=== PATIENT | female | born 1995 | race Caucasian/White ===

== ENCOUNTER 2018-12-09 00:08 | Emergency (ER) | payer OTHER, SELFPAY ==
[2018-12-09 00:16] VITALS: BP 116/78; PULSE 136; RESP 18; TEMP 36.7; O2SAT 99; BMI 23.8
== END 2018-12-09 01:07 | disposition left against medical advice (07) ==
PROVIDERS: Emergency Provider Emergency Medicine
DX: M25.511 Pain in right shoulder (principal); M25.561 Pain in right knee; M25.521 Pain in right elbow; V89.2XXA Person injured in unspecified motor-vehicle accident, traffic, initial encounter; Z53.21 Procedure and treatment not carried out due to patient leaving prior to being seen by health care provider
CPT/HCPCS: 81025; 99282

== ENCOUNTER 2019-06-24 00:44 | Emergency (ER) | payer OTHER, SELFPAY ==
[2019-06-24 00:51] VITALS: BP 137/76; PULSE 56; RESP 16; TEMP 36.1; O2SAT 96; BMI 23.8
--- NOTE | 2019-06-24 00:54 | ED_ITS ---
HPI - Abdominal Pain General Chief Complaint: Back Pain/Injury Stated Complaint: flank pain right side vomiting Time Seen by Provider: 06/24/19 00:46 Source: patient Mode of arrival: Ambulatory Limitations: no limitations History of Present Illness HPI narrative: 24-year-old female nonsmoker with history of kidney stones presents with a chief complaint of a severe and sudden onset right lower quadrant pain which woke her from sleep about an hour prior to her arrival. She went to bed feeling fine. She denies any dysuria, frequency or urgency but states she is unable to urinate. She does have a history of kidney stones, as stated, but states this feels much different. She is nauseated but denies any vomiting, fever or chills. She cannot find a position of comfort, but states that moving makes her pain worse. Last period was 3 weeks ago and light, 4 weeks prior she had a totally normal cycle. She is trying to get . MD complaint: abdominal pain and flank pain Onset (ago): hour(s) Pain Consistency: constant Location: RLQ Severity: moderate Quality: stabbing and aching Radiation: R flank Exacerbating factors: movement Associated symptoms: nausea Related Data Patient : No Previous Rx's Medication Instructions Recorded sulfamethoxazole-trimethoprim 1 tab PO BID #14 tab 12/14/16 tamsulosin [Flomax] 0.4 mg PO QDAY #8 cap 12/14/16 cephalexin [Keflex] 500 mg PO QID 7 Days #28 cap 06/24/19 hydrocodone-acetaminophen 1 tab PO Q4-6H PRN #10 tab 06/24/19 ketorolac 10 mg PO Q6H PRN #14 tab 06/24/19 ondansetron 4 mg PO TID-QID PRN #10 tab 06/24/19 tamsulosin [Flomax] 0.4 mg PO DAILY #10 cap 06/24/19 Allergies Allergy/AdvReac Type Severity Reaction Status Date / Time hydromorphone [From DILAUDID] Allergy Unknown ITCHING Verified 12/09/18 00:16 ibuprofen [IBUPROFEN] AdvReac Unknown Verified 12/09/18 00:16 naproxen [From ALEVE] AdvReac Unknown Verified 12/09/18 00:16 Review of Systems Constitutional Constitutional: Denies chills, Denies fatigue, Denies fever(s), Denies frequent falls, Denies lethargy and Denies weakness Eyes Eyes: Denies change in vision, Denies eye discharge, Denies irritation and Denies loss of vision ENT Ears, Nose, Mouth, and Throat: Denies change in voice, Denies dizziness, Denies neck pain, Denies sore throat and Denies throat swelling Cardiovascular Cardiovascular: Denies chest pain, Denies irregular heart rhythm, Denies lightheadedness, Denies palpitations, Denies dyspnea, Denies dyspnea on exertion and Denies orthopnea Respiratory Respiratory: Denies cough, Denies dyspnea, Denies dyspnea on exertion and Denies wheezing Gastrointestinal Gastrointestinal: Reports abdominal pain, Denies change in bowel habits, Denies diarrhea, Reports nausea and Denies vomiting Genitourinary Genitourinary: Denies hematuria, Reports flank pain, Denies urinary incontinence and Denies urinary urgency Musculoskeletal Musculoskeletal: Denies back pain, Denies muscle weakness, Denies neck pain, Denies numbness and Denies tingling Integumentary/Breasts Skin/Breast: Denies pruritus, Denies erythema, Denies rash and Denies wounds Neurologic Neurologic: Denies behavioral changes, Denies confusion, Denies dizziness, Denies frequent falls, Denies loss of vision, Denies numbness, Denies tingling and Denies weakness Psychiatric Psychiatric: Denies anxiety, Denies behavioral changes, Denies confusion, Denies depression, Denies homicidal ideation and Denies suicidal ideation Endocrine Endocrine: Denies fatigue, Denies flushing and Denies palpitations Hematologic/Lymphatic Hematologic/Lymphatic: Denies easy bruising Allergic/Immunologic Allergic/Immunologic: Denies urticaria, Denies throat swelling and Denies wheezing Patient History Social History Smoking Status: Current every day smoker alcohol intake frequency: holidays/special occasions only Substance Use Type: does not use Exam Narrative Exam Narrative: GENERAL: [24] year old patient appears stated age. Well- nourished, well-developed patient, in significant, obviously in tremendous pain, tearful HEAD: Atraumatic. Normocephalic. EYES: Pupils equal round and reactive. Extraocular motions intact. No scleral icterus. No injection or drainage. ENT: Nose without bleeding, purulent drainage. Throat without erythema, tonsillar hypertrophy or exudate. Airway patent. NECK: Trachea midline. Non tender CARDIOVASCULAR: Regular rate and rhythm without murmurs, gallops, or rubs. RESPIRATORY: Clear to auscultation. Breath sounds equal bilaterally. No wheezes, rales, or rhonchi. GASTROINTESTINAL: Abdomen soft, tender right lower quadrant, nondistended. EXTREMITIES: No edema or joint tenderness. BACK: Nontender without deformity or crepitance. No flank tenderness. NEURO: AOx3. SKIN: No rash or erythema of visible areas Initial Vital Signs Initial Vital Signs: Vital Signs Temperature 97 F L 06/24/19 00:51 Pulse Rate 56 L 06/24/19 00:51 Respiratory Rate 16 06/24/19 00:51 Blood Pressure 137/76 06/24/19 00:51 Pulse Oximetry 96 06/24/19 00:51 Course Orders Ordered: ED Orders 06/24/19 00:55 US pelvic complete Stat 06/24/19 00:58 Complete Blood Count AUTO DIFF Stat Comprehensive Metabolic Panel Stat HCG Quantitative Stat Lipase Stat 06/24/19 01:43 CT kidney ureter bladder (KUB) Stat 06/24/19 01:50 Urine Microscopic Stat Discontinued Medications Hydrocodone Bitart/Acetaminophen (Vicodin Prepack) 1 bottle MISC SEEINSTR ONE Stop: 06/24/19 03:02 Last Admin: 06/24/19 03:10 Dose: 1 bottle Documented by: MMCFARL Hydromorphone HCl (Dilaudid) 0.5 mg IV NOW ONE Stop: 06/24/19 00:55 Last Admin: 06/24/19 01:00 Dose: 0.5 mg Documented by: MMCFARL Sodium Chloride (Normal Saline 0.9%) 1,000 mls @ 1,000 mls/hr IV BOLUS ONE Stop: 06/24/19 01:53 Last Infusion: 06/24/19 02:08 Dose: 1,000 mls/hr Documented by: Admin: 06/24/19 01:01 Dose: 1,000 mls/hr Documented by: MMCFARL Ketorolac Tromethamine (Toradol) 15 mg IV NOW ONE Stop: 06/24/19 01:36 Last Admin: 06/24/19 01:42 Dose: 15 mg Documented by: MMCFARL Ondansetron HCl (Zofran) 4 mg IV NOW ONE Stop: 06/24/19 00:55 Last Admin: 06/24/19 01:04 Dose: 4 mg Documented by: EFREN Ondansetron HCl (Zofran Odt Prepack) 1 bottle MISC SEEINSTR ONE Stop: 06/24/19 03:02 Last Admin: 06/24/19 03:10 Dose: 1 bottle Documented by: EFREN Vital Signs Vital signs: Vital Signs - 8 hr 06/24/19 00:51 06/24/19 03:27 Temperature 97 F L Pulse Rate 56 L 97 H Respiratory Rate 16 16 Blood Pressure 137/76 108/72 Pulse Oximetry 96 99 MDM - Abdominal Pain Lab Data Result diagrams: 06/24/19 00:58 06/24/19 00:58 Labs: Lab Results 06/24/19 06/24/19 06/24/19 Range/Units 00:58 00:58 01:50 WBC 9.6 (4.5-11.0) X10^3/uL RBC 4.66 (4.0-5.2) X10^6/uL Hgb 14.1 (12.0-16.0) g/dL Hct 41.2 (36-46) % MCV 88.4 (80-100) fL MCH 30.2 (26-34) PG MCHC 34.2 (30-36) % RDW 13.9 (11.6-14.8) % Plt Count 344 (150-400) X10^3/uL Neut % (Auto) 70.5 (50-75) % Lymph % (Auto) 20.3 L (25-40) % [place] % (Auto) 7.2 (3-14) % Eos % (Auto) 1.5 L (2-4) % Baso % (Auto) 0.5 (0-2) % Neut # (Auto) 6700 (7284-0205) /uL Lymph # (Auto) 1900 (1007-8606) /uL [place] # (Auto) 700 (0-900) /uL Eos # (Auto) 100 (0-450) /uL Baso # (Auto) 0 (0-100) /uL Sodium 137 (137-145) mmol/L Potassium 4.3 (3.4-5.1) mmol/L Chloride 101 (98-107) mmol/L Carbon Dioxide 27 (22-32) mmol/L BUN 14 (7-17) mg/dL Creatinine 0.80 (0.52-1.04) mg/dL Estimated GFR > 60.0 (>60) mL/min BUN/Creatinine Ratio 17.5 (6-22) Glucose 114 H (70-100) mg/dL Calcium 9.8 (8.4-10.2) mg/dL Total Bilirubin 1.1 (0.2-1.3) mg/dL AST 35 (14-36) IU/L ALT 21 (<35) IU/L Alkaline Phosphatase 71 (38-126) U/L Total Protein 7.9 (6.3-8.2) g/dL Albumin 4.8 (3.5-5.0) g/dL Globulin 3.1 (1.7-4.1) g/dL Albumin/Globulin Ratio 1.5 (1.0-2.8) Lipase 36 (23-300) U/L HCG, Quant < 2.39 mIU/mL Urine RBC 1-5/hpf (0-5/HPF) Urine WBC None seen (0-5/HPF) Ur Squamous Epith Cells 5-10 /hpf H (0-5/HPF) Urine Bacteria Moderate (10-30) H (None) Urine Mucus 2+ H (Negative) Ur Culture Indicated? Cult not indicated Point of care testing: Point of Care Testing Test Results Negative Urine Dip Bedside Urine Glucose Negative Bedside Urine Bilirubin + 1 Bedside Urine Ketone ++ 40 Urine Specific [place] 1.030 Bedside Urine Occult Blood + Bedside Urine pH 6.0 Bedside Urine Protein + 30 Bedside Urine Urobilinogen - Negative Bedside Urine Nitrite - Negative Bedside Urine Leukocytes - Negative Esterase Imaging Data US - abdomen: Radiologist's impression: 2.4 cm left ovarian cyst, otherwise unremarkable Discharge Plan Departure Patient Disposition: Home Clinical Impression: Kidney stones Discharge Date/Time: 06/24/19 03:30 Instructions: DI for Kidney Stones Activity Restrictions/Additional Instructions: *You have been diagnosed with [kidney stone] *What to do: *Take medications as directed *Follow up with your primary care provider in 2-3 days, call for an appointment. Let them know you were seen in the Emergency Department and that we ask that you be seen in follow up *Return to ER if you should have any new, worsening or concerning symptoms, such as [worsening pain, persistent vomiting, fever, shaking chills or other bothersome symptoms] Prescriptions: New hydrocodone-acetaminophen 5-325 mg tablet 1 tab PO Q4-6H PRN (Reason: pain) Qty: 10 RF: 0 ketorolac 10 mg tablet 10 mg PO Q6H PRN (Reason: pain) Qty: 14 RF: 0 tamsulosin [Flomax] 0.4 mg capsule 0.4 mg PO DAILY Qty: 10 RF: 0 ondansetron 4 mg tablet,disintegrating 4 mg PO TID-QID PRN (Reason: nausea and vomiting) Qty: 10 RF: 0 cephalexin [Keflex] 500 mg capsule 500 mg PO QID 7 Days Qty: 28 RF: 0 No Action sulfamethoxazole-trimethoprim 800 MG/160 MG tablet 1 tab PO BID Qty: 14 RF: 0 tamsulosin [Flomax] 0.4 MG capsule,extended release 24hr 0.4 mg PO QDAY Qty: 8 RF: 0 Referrals: Miscellaneous,Doctor, MD [Primary Care Provider] -
--- NOTE | 2019-06-24 00:55 | DI.US.S_ITS ---
PROCEDURE: US PELVIC COMPLETE INDICATIONS: SEVERE RIGHT PELVIC PAIN TECHNIQUE: Real-time scanning was performed of the pelvic organs, with image documentation. Additional endovaginal scanning was necessary due to incomplete visualization of the adnexal and endometrial structures by transabdominal scanning. COMPARISON: None. FINDINGS: Transabdominal scanning: Limited scanning through the kidneys shows no hydronephrosis. No pathologic free abdominal or pelvic fluid. Endovaginal scanning: Uterus: Uterus is normal in size at 6.9 x 3.3 x 4.7 cm. The endometrium measures 6.6 mm in combined thickness. Ovaries: Right ovary measures 3.9 x 2.7 x 2.3 cm right ovary is sonographically normal. Left ovary measures 1.8 x 2.1 x 5.1 cm. There is a 2.4 x 1.4 x 2.4 cm simple cyst in the left ovary. The appendix is not visualized and cannot be evaluated. IMPRESSION: 1. 2.4 x 1.4 x 2.4 cm left ovarian cyst. 2. Otherwise normal pelvic sonogram. 3. The appendix is not visualized and cannot be evaluated. This study does not exclude appendicitis. Dictated by: Fauzia Turner MD, PhD on 06/24/2019 at 7:53 Approved by: Fauzia Turner MD, PhD on 06/24/2019 at 7:55
[2019-06-24] MEDS: HYDROMORPHONE 0.5 MG INJ IV (01:00)
[2019-06-24] MEDS: SODIUM CHLORIDE 0.9% 1,000 ML 1000 ML IV (01:01)
[2019-06-24] MEDS: ONDANSETRON 4 MG/2 ML INJ IV (01:04)
[2019-06-24 01:11] LABS: Add Manual Diff / Slide Review NO; Basophils Absolute Auto 0 /uL (0-100); Basophils Percent Auto 0.5 % (0-2); Eosinophils Absolute Auto 100 /uL (0-450); Eosinophils Percent Auto 1.5 % (2-4); Hematocrit 41.2 % (36-46); Hemoglobin 14.1 g/dL (12.0-16.0); Lymphocytes Absolute Auto 1900 /uL (1100-4500); Lymphocytes Percent Auto 20.3 % (25-40); Mean Corpuscular HGB Conc 34.2 % (30-36); Mean Corpuscular Hemoglobin 30.2 PG (26-34); Mean Corpuscular Volume 88.4 fL (80-100); Monocytes Absolute Auto 700 /uL (0-900); Monocytes Percent Auto 7.2 % (3-14); Neutrophils Absolute Auto 6700 /uL (1500-7000); Neutrophils Percent Auto 70.5 % (50-75); Platelet Count 344 X10^3/uL (150-400); Red Blood Cell Count 4.66 X10^6/uL (4.0-5.2); Red Cell Distribution Width 13.9 % (11.6-14.8); White Blood Cell Count 9.6 X10^3/uL (4.5-11.0)
[2019-06-24 01:16] LABS: Alanine Aminotransferase 21 IU/L (<35); Albumin 4.8 g/dL (3.5-5.0); Albumin Globulin Ratio 1.5 (1.0-2.8); Alkaline Phosphatase 71 U/L (38-126); Aspartate Aminotransferase 35 IU/L (14-36); BUN Creatinine Ratio 17.5 (6-22); Bilirubin Total 1.1 mg/dL (0.2-1.3); Blood Urea Nitrogen 14 mg/dL (7-17); Calcium 9.8 mg/dL (8.4-10.2); Carbon Dioxide 27 mmol/L (22-32); Chloride 101 mmol/L (98-107); Estimated Glomerular Filt Rate > 60.0 mL/min (>60); Globulin 3.1 g/dL (1.7-4.1); Glucose 114 mg/dL (70-100); HEMOLYSIS 42 (0-50); Lipase 36 U/L (23-300); Potassium 4.3 mmol/L (3.4-5.1); Sodium 137 mmol/L (137-145); Total Protein 7.9 g/dL (6.3-8.2)
[2019-06-24 01:33] LABS: HCG Quantitative /Beta subunit < 2.39 mIU/mL
--- NOTE | 2019-06-24 01:34 | PC.NURSE ---
Pt states has had kidney stones in the past but states this feels different. pain was sudden onset, causing nausea and vomiting.
[2019-06-24] MEDS: KETOROLAC 60 MG/2 ML VIAL 15 MG IV (01:42)
--- NOTE | 2019-06-24 01:43 | DI.CT.S_ITS ---
PROCEDURE: CT KIDNEY URETER BLADDER (KUB) INDICATIONS: Right groin pain, hematuria, history of stones TECHNIQUE: Noncontrast 5 mm thick sections acquired from the diaphragms to the symphysis. 5 mm thick coronal and sagittal reformats were then performed. For radiation dose reduction, the following was used: automated exposure control, adjustment of mA and/or kV according to patient size. COMPARISON: [facility], , US PELVIC COMPLETE, 06/24/2019, 1:19. FINDINGS: Image quality: Excellent. Lung bases: Lung bases are clear. Heart size is normal. Urinary system: 3 mm calculus seen at the right ureterovesical junction. Associated right hydroureteronephrosis. The left sided urolithiasis or evidence of left-sided urinary obstruction. Additional 3 mm calculus present in the right kidney on image 29. There are pelvic phleboliths Other solid organs: Liver is normal in size. Gallbladder unremarkable. Pancreas is normal in contours. Spleen is normal in size. No adrenal nodules. Peritoneum and bowel: Unenhanced bowel loops demonstrate normal wall thickness and caliber. No free fluid or air. Normal appendix. Nodes and vessels: No retroperitoneal or mesenteric adenopathy by size criteria. There are scattered shotty subcentimeter retroperitoneal lymph nodes, technically non-specific finding Aorta and inferior vena cava are normal in caliber. Abdominal wall: No ventral hernias. Pelvis: No free pelvic fluid. No inguinal hernias or adenopathy. Prominent left adnexal cystic appearance which is better evaluated with comparison ultrasound dated same day. Please see report Bones: No suspicious bony lesions. No vertebral body compression fractures. IMPRESSION: Mild right hydroureteronephrosis related to a 3 mm right UVJ calculus. Additional 3 mm right nephrolithiasis. Findings concordant with the preliminary study interpretation provided at the time of the exam. Dictated by: Mono Bautista M.D. on 06/24/2019 at 7:35 Approved by: Mono Bautista M.D. on 06/24/2019 at 7:41
[2019-06-24 01:52] LABS: WBC Urine None Seen (0-5/HPF)
[2019-06-24 01:59] LABS: Bacteria Urine Moderate (10-30); Mucus Urine 2+ (Negative); RBC Urine 1-5/HPF (0-5/HPF); Squamous Epithelial Cell Urine 5-10 /HPF (0-5/HPF)
[2019-06-24 02:01] LABS: Culture Indicated Urine Cult Not Indicated
[2019-06-24] MEDS: ONDANSETRON 4 MG ODT PREPACK 1 BOTTLE MISC (03:10)
[2019-06-24] MEDS: HYDROCODONE/ACET 5/325 PREPACK 1 BOTTLE MISC (03:10)
[2019-06-24 03:27] VITALS: BP 108/72; PULSE 97; RESP 16; O2SAT 99
== END 2019-06-24 03:30 | disposition home or self-care (01) ==
PROVIDERS: Emergency Provider Emergency Medicine
DX: N20.0 Calculus of kidney (principal); Z87.442 Personal history of urinary calculi
CPT/HCPCS: 36415; 74176; 76830; 76856; 80053; 81003; 81015; 81025; 83690; 84702; 85025; 96361; 96374; 96375; 99283; 99284; J1170; J1885; J2405

== ENCOUNTER 2020-09-13 10:38 | Emergency (ER) | payer BC, SELFPAY ==
[2020-09-13] VITALS (7 sets, daily range): BP systolic 112–132; BP diastolic 69–81; PULSE 70–93; RESP 30; TEMP 36.2; O2SAT 94–100; BMI 25.6
--- NOTE | 2020-09-13 10:59 | ED.ABDPAIN ---
HPI - Abdominal Pain General Chief Complaint: Urogenital-Female Stated Complaint: vomiting post-op/urinary retention Time Seen by Provider: 09/13/20 10:55 Source: patient Mode of arrival: Ambulatory Limitations: no limitations History of Present Illness HPI narrative: This is a 25-year-old female comes to the emergency department with complaint of left lower abdominal pain. Patient states she had kidney stone with a right-sided lithotripsy and ureteral stent placed on Friday the with Dr. Byrd at [facility]. Patient states that she started to developed left-sided flank pain that has been moving to the left lower abdomen. She states this is significantly worse than any prior kidney stone she has had. She has had multiple kidney stones in the. She had a low-grade fever at home she has had nausea with an episode of vomiting on the way to the hospital. She has had slightly constipated bowel movements but has been passing stool regularly. Patient states she has a sensation of dysuria, urgency and incomplete emptying. She has been taking ibuprofen 800 mg with minimal improvement. She has been avoiding the Percocet prescribed as she states she does not tolerate well. Patient denies any other surgeries. She denies any other medical issues. She does use tobacco, occasional alcohol. She uses CBD but denies any other recreational or illicit drugs. Dr. Nicholson is her PCP. Related Data Previous Rx's Medication Instructions Recorded sulfamethoxazole-trimethoprim 1 tab PO BID #14 tab 12/14/16 tamsulosin [Flomax] 0.4 mg PO QDAY #8 cap 12/14/16 hydrocodone-acetaminophen 1 tab PO Q4-6H PRN #10 tab 06/24/19 ketorolac 10 mg PO Q6H PRN #14 tab 06/24/19 ondansetron 4 mg PO TID-QID PRN #10 tab 06/24/19 tamsulosin [Flomax] 0.4 mg PO DAILY #10 cap 06/24/19 ciprofloxacin HCl 500 mg PO BID #20 tab 09/13/20 ondansetron HCl [Zofran] 4 mg PO Q6H PRN #10 tab 09/13/20 oxycodone 5 mg PO Q4H PRN #10 tab 09/13/20 Allergies Allergy/AdvReac Type Severity Reaction Status Date / Time hydromorphone [From DILAUDID] Allergy Unknown ITCHING Verified 09/13/20 10:54 ibuprofen [IBUPROFEN] AdvReac Unknown Verified 09/13/20 10:54 naproxen [From ALEVE] AdvReac Unknown Verified 09/13/20 10:54 Review of Systems Review of Systems ROS Unobtainable: All systems reviewed & are unremarkable except as noted in HPI and below Patient History Surgical History Status post laser lithotripsy of ureteral calculus Social History Smoking Status: Current every day smoker Smoking Status: Current every day smoker alcohol intake frequency: holidays/special occasions only Substance Use Type: does not use Exam Narrative Exam Narrative: GENERAL: Alert and oriented x three, well-nourished female in moderate distress. Patient appears quite uncomfortable and has difficulty finding a position of comfort. HEENT: Head normocephalic, atraumatic, EOMI, pupils reactive, face symmetric, moist mucous membranes NECK: Supple, full range of motion CARDIOVASCULAR: Regular rate and rhythm without murmurs, rubs or gallops. RESPIRATORY: Breath sounds equal bilaterally, no wheezes rales or rhonchi. ABDOMEN: Soft, suprapubic and significant LLQ tenderness with guarding. No rigidity or mass noted. Normoactive bowel sounds all 4 quadrants. Nondistended. : No right CVA tenderness, with mild left CVA tenderness but significantly less than LLQ anterior tenderness EXTREMITIES: Normal range of motion, no clubbing or edema. Neurovascularly intact NEUROLOGICAL: Cranial nerves II through XII grossly intact. Moving all extremities SKIN: Warm, dry, no petechiae, no rashes or lesions. Initial Vital Signs Initial Vital Signs: Vital Signs Temperature 97.1 F L 09/13/20 10:48 Pulse Rate 75 09/13/20 10:48 Respiratory Rate 30 H 09/13/20 10:48 Blood Pressure 132/81 09/13/20 10:48 Pulse Oximetry 100 09/13/20 10:48 Course Orders Ordered: ED Orders 09/13/20 10:55 Complete Blood Count AUTO DIFF Stat Comprehensive Metabolic Panel Stat Lactate (Lactic Acid) Stat Lipase Stat 09/13/20 11:08 CT kidney ureter bladder (KUB) Stat 09/13/20 11:10 Urine Culture Stat Urine Microscopic Stat 09/13/20 12:15 Blood Culture Stat Discontinued Medications Sodium Chloride (Normal Saline 0.9%) 1,000 mls @ 1,000 mls/hr IV BOLUS ONE Stop: 09/13/20 11:54 Last Infusion: 09/13/20 12:17 Dose: 0 mls/hr Documented by: Admin: 09/13/20 11:07 Dose: 1,000 mls/hr Documented by: NITHYA Ciprofloxacin (Cipro) 400 mg in 200 mls @ 200 mls/hr IV NOW SETH Last Infusion: 09/13/20 13:18 Dose: 0 mls/hr Documented by: Admin: 09/13/20 12:17 Dose: 200 mls/hr Documented by: NITHYA Sodium Chloride (Normal Saline 0.9%) 1,000 mls @ 1,000 mls/hr IV BOLUS ONE Stop: 09/13/20 14:33 Last Infusion: 09/13/20 14:49 Dose: 0 mls/hr Documented by: Admin: 09/13/20 13:42 Dose: 1,000 mls/hr Documented by: NITHYA Lidocaine HCl 4.8 ml/ Sodium (Chloride) 54.8 mls @ 328.8 mls/hr IV NOW ONE Stop: 09/13/20 13:53 Last Infusion: 09/13/20 14:33 Dose: 0 mls/hr Documented by: Admin: 09/13/20 14:19 Dose: 328.8 mls/hr Documented by: NITHYA Ketorolac Tromethamine (Ketorolac 60 Mg/2 Ml Vial) 30 mg IV NOW ONE Stop: 09/13/20 10:56 Last Admin: 09/13/20 11:07 Dose: 30 mg Documented by: NITHYA Lorazepam (Lorazepam 2 Mg/Ml Inj) 0.5 mg IV NOW ONE Stop: 09/13/20 13:35 Last Admin: 09/13/20 13:41 Dose: 0.5 mg Documented by: NITHYA Morphine Sulfate (Morphine 2 Mg/Ml Inj) 2 mg IV NOW ONE Stop: 09/13/20 11:59 Last Admin: 09/13/20 12:08 Dose: 2 mg Documented by: RIC Morphine Sulfate (Morphine 4 Mg/Ml Inj) 4 mg IV NOW ONE Stop: 09/13/20 13:08 Last Admin: 09/13/20 13:10 Dose: 4 mg Documented by: NITHYA Ondansetron HCl (Ondansetron 4 Mg/2 Ml Inj) 4 mg IV NOW ONE Stop: 09/13/20 10:56 Last Admin: 09/13/20 11:07 Dose: 4 mg Documented by: NITHYA Reevaluation(s) Reevaluation #1: Patient improved but still uncomfortable. Urine shows nitrates as well as other changes consistent with infection. Patient was started on IV dose of Cipro, KUB is pending. Patient does have a significant white count. Her vital signs do not point towards sepsis but lactate and blood cultures were obtained. Time: 11:59 Reevaluation #2: Patient CT shows stone on left. Mild hydronephrosis. Patient continues to have some pain but somewhat improved. She had morphine followed by an additional 4 of morphine and a second liter of fluid. She is eating some food but still uncomfortable. She states she actually responded very well to IV lidocaine in the past so plan to do this. She is tolerating orals at this time and has ambulated to the bathroom to urinate Time: 14:02 Consultations Consultation #1: Spoke with Dr. Byrd, patient had right ureteral stent with new left kidney stone and positive for nitrates, leuks, afebrile with pain improved and no signs of septic shock at this time. Recommends fluids, flomax and we can give antibiotics. Dr. Byrd states that recent manipulation with ureteral stent can cause as patient's urine to look infected we did discuss that there are the nitrates positive. In that that her kidney stone is not on the side of the stent. Plan to have patient follow up with urology outpatient but with low threshold to return. Time: 12:52 Time: 13:12 Vital Signs Vital signs: Vital Signs - 8 hr 09/13/20 11:42 09/13/20 12:00 09/13/20 12:22 Pulse Rate 90 77 93 H Blood Pressure Pulse Oximetry 94 98 99 09/13/20 14:36 Pulse Rate Blood Pressure 112/69 Pulse Oximetry MDM - Abdominal Pain Lab Data Attestation: I reviewed the patient's lab results. Result diagrams: 09/13/20 10:55 09/13/20 10:55 Labs: Lab Results 09/13/20 09/13/20 09/13/20 Range/Units 10:55 10:55 10:55 WBC 15.2 H (4.5-11.0) X10^3/uL RBC 4.78 (4.0-5.2) X10^6/uL Hgb 13.5 (12.0-16.0) g/dL Hct 41.8 (36-46) % MCV 87.3 (80-100) fL MCH 28.1 (26-34) PG MCHC 32.2 (30-36) % RDW 13.3 (11.6-14.8) % Plt Count 502 H (150-400) X10^3/uL Neut % (Auto) 87.2 H (50-75) % Lymph % (Auto) 8.1 L (25-40) % Baker % (Auto) 4.0 (3-14) % Eos % (Auto) 0.4 L (2-4) % Baso % (Auto) 0.3 (0-2) % Neut # (Auto) 45030 H (9720-7093) /uL Lymph # (Auto) 1200 (6544-0416) /uL Baker # (Auto) 600 (0-900) /uL Eos # (Auto) 100 (0-450) /uL Baso # (Auto) 0 (0-100) /uL Sodium 138 (137-145) mmol/L Potassium 4.3 (3.4-5.1) mmol/L Chloride 103 (98-107) mmol/L Carbon Dioxide 28 (22-32) mmol/L BUN 17 (7-17) mg/dL Creatinine 1.17 H (0.52-1.04) mg/dL Estimated GFR 56.4 L (>60) mL/min BUN/Creatinine Ratio 14.5 (6-22) Glucose 131 H (70-100) mg/dL Lactate 1.6 (0.7-2.1) mmol/L Calcium 9.7 (8.4-10.2) mg/dL Total Bilirubin 0.7 (0.2-1.3) mg/dL AST 25 (14-36) IU/L ALT 16 (<35) IU/L Alkaline Phosphatase 73 (38-126) U/L Total Protein 7.7 (6.3-8.2) g/dL Albumin 4.5 (3.5-5.0) g/dL Globulin 3.2 (1.7-4.1) g/dL Albumin/Globulin Ratio 1.4 (1.0-2.8) Lipase 31 (23-300) U/L Urine RBC (0-5/HPF) Urine WBC (0-5/HPF) Ur Squamous Epith Cells (0-5/HPF) Urine Bacteria (None) Ur Culture Indicated? 09/13/20 Range/Units 11:10 WBC (4.5-11.0) X10^3/uL RBC (4.0-5.2) X10^6/uL Hgb (12.0-16.0) g/dL Hct (36-46) % MCV (80-100) fL MCH (26-34) PG MCHC (30-36) % RDW (11.6-14.8) % Plt Count (150-400) X10^3/uL Neut % (Auto) (50-75) % Lymph % (Auto) (25-40) % Baker % (Auto) (3-14) % Eos % (Auto) (2-4) % Baso % (Auto) (0-2) % Neut # (Auto) (4691-1485) /uL Lymph # (Auto) (5272-2145) /uL Baker # (Auto) (0-900) /uL Eos # (Auto) (0-450) /uL Baso # (Auto) (0-100) /uL Sodium (137-145) mmol/L Potassium (3.4-5.1) mmol/L Chloride (98-107) mmol/L Carbon Dioxide (22-32) mmol/L BUN (7-17) mg/dL Creatinine (0.52-1.04) mg/dL Estimated GFR (>60) mL/min BUN/Creatinine Ratio (6-22) Glucose (70-100) mg/dL Lactate (0.7-2.1) mmol/L Calcium (8.4-10.2) mg/dL Total Bilirubin (0.2-1.3) mg/dL AST (14-36) IU/L ALT (<35) IU/L Alkaline Phosphatase (38-126) U/L Total Protein (6.3-8.2) g/dL Albumin (3.5-5.0) g/dL Globulin (1.7-4.1) g/dL Albumin/Globulin Ratio (1.0-2.8) Lipase (23-300) U/L Urine RBC 10-30/hpf H (0-5/HPF) Urine WBC 1-5/hpf (0-5/HPF) Ur Squamous Epith Cells 5-10 /hpf H (0-5/HPF) Urine Bacteria None seen (None) Ur Culture Indicated? Cult not indicated Point of care testing: Point of Care Testing Test Results Negative Urine Dip Bedside Urine Glucose Negative Bedside Urine Bilirubin ++ 2 Bedside Urine Ketone - Negative Urine Specific Palmer 1.015 Bedside Urine Occult Blood +++ Bedside Urine pH 8 Bedside Urine Protein ++ 100 Bedside Urine Urobilinogen 2+ 4mg Bedside Urine Nitrite + Positive Bedside Urine Leukocytes ++ [address] scan - abdomen/pelvis: Radiologist's Impression: [address] [id number] Scan ReportSigned Patient: Rosie Graham JMR#: [id number]: 1995Acct:[id number]/Sex: 25 / FDate of Service: 09/13/20Loc: EDAccession Number: [id number] Procedure: CT kidney ureter bladder (KUB) Ordering Provider: Char Brown D.O. PROCEDURE: CT KIDNEY URETER BLADDER (KUB) INDICATIONS: LLQ/flank pain, hx stones, Right lithotripsy, stent on Laura TECHNIQUE: Noncontrast 5 mm thick sections acquired from the diaphragms to the symphysis. 5 mm thick coronal and sagittal reformats were then performed. For radiation dose reduction, the following was used: automated exposure control, adjustment of mA and/or kV according to patient size. COMPARISON: Outside Film, CT, CT ABDOMEN PELVIS WITHOUT CONTRAST, 08/29/2020, 15:53. [facility], CT, CT KIDNEY URETER BLADDER (KUB), 06/24/2019, 1:53. FINDINGS: Image quality: Excellent. Lung bases: Lung bases are clear. Heart size is normal. Urinary system: There is a 3 mm stone at the left UVJ. There is mild left hydronephrosis and ureterectasis. Both kidneys are normal in size. A ureteral stent is seen on the right side with the proximal loop formed within the right renal pelvis and distal loop within the urinary bladder. Bladder wall thickness is normal; no calcified bladder stones. Other solid organs: Liver is normal in size. Gallbladder is normal. Pancreas is normal in contours. Spleen is normal in size. No adrenal nodules. Peritoneum and bowel: Unenhanced bowel loops demonstrate normal wall thickness and caliber. No free fluid or air. Nodes and vessels: No retroperitoneal or mesenteric adenopathy by size criteria. Aorta and inferior vena cava are normal in caliber. Abdominal wall: No ventral hernias. Pelvis: Uterus and ovaries are normal. There is a 2.4 cm cyst in the left ovary, probably a dominant ovarian follicle. There is a trace amount of free fluid in pelvis, within physiological limits. No inguinal hernias or adenopathy. Bones: No suspicious bony lesions. No vertebral body compression fractures. IMPRESSION: 1. A 3 mm obstructive stone in the distal left ureter at the left UVJ. There is mild left hydronephrosis. 2. A right ureter stent is in the expected position. Dictated by: Barbie Smiley M.D. on 09/13/2020 at 11:52 Approved by: Barbie Smiley M.D. on 09/13/2020 at 12:18 MDM Narrative Medical decision making narrative: 25-year-old female had a right kidney stone with lithotripsy and ureteral stent placed on Friday who has now developed significant left-sided pain particularly on the anterior side and suprapubic. Patient had low-grade fever with recent instrumentation and a history of recurrent kidney stones which is concerning for possible perforation vs obstructive stone or infected obstructed stone and CT imaging was ordered. Patient's urine shows nitrates, white cells consistent with UTI, she has a 3 mm obstructive stone in the left in the distal ureter some mild left hydro, she has leukocytosis with a decrease in whole renal function her creatinine today is 1.2. Patient does not appear to be in septic shock, her vitals are appropriate here. She received a dose of Cipro IV here, IV fluids and consultation with her urologist, Dr. Byrd. If patient does not appear septic, if pain controlled can d/c home with follow up. She is on flomax. urine and blood cultures are pending. Patient's symptoms were much better after lidocaine and she feels comfortable returning is tolerating orals. Discharge Plan Departure Patient Disposition: Home Clinical Impression: Kidney stones, UTI (urinary tract infection) Instructions: DI for Kidney Stones Activity Restrictions/Additional Instructions: Follow up with Dr. Byrd your urologist. Call for follow up. Your imaging today shows a 3mm stone on the left, your urine is concerning for infection and you have been started on antibiotics. Obstructed kidney stones with infection can worsen reapidly if you are feeling significantly worse return for recheck. Continue your flomax daily. Take antibiotics until gone. You may take tylenol up to 1000mg every 8 hours as needed. For additional pain control take pain medication as prescribed. Take pain medication as prescribed, this medication can make you sleepy do not drive, perform hazardous activities or make any major decisions while taking it. Return to ER for fevers greater than 100.4F, new or worsening abdominal, flank or back pain, persistent vomiting, lightheadedness or passing out, diaphoresis, new chest pain or shortness of breath, inability urinate, black or bloody stools or other new or concerning symptoms. Prescriptions: New oxycodone 5 mg tablet 5 mg PO Q4H PRN (Reason: pain) Qty: 10 RF: 0 ondansetron HCl [Zofran] 4 mg tablet 4 mg PO Q6H PRN (Reason: nausea and vomiting) Qty: 10 RF: 0 ciprofloxacin HCl 500 mg tablet 500 mg PO BID Qty: 20 RF: 0 No Action sulfamethoxazole-trimethoprim 800 MG/160 MG tablet 1 tab PO BID Qty: 14 RF: 0 tamsulosin [Flomax] 0.4 MG capsule,extended release 24hr 0.4 mg PO QDAY Qty: 8 RF: 0 hydrocodone-acetaminophen 5-325 mg tablet 1 tab PO Q4-6H PRN (Reason: pain) Qty: 10 RF: 0 ketorolac 10 mg tablet 10 mg PO Q6H PRN (Reason: pain) Qty: 14 RF: 0 tamsulosin [Flomax] 0.4 mg capsule 0.4 mg PO DAILY Qty: 10 RF: 0 ondansetron 4 mg tablet,disintegrating 4 mg PO TID-QID PRN (Reason: nausea and vomiting) Qty: 10 RF: 0 Referrals: Emeka Byrd DO [Non-Staff] - Miscellaneous,Doctor, [Primary Care Provider] -
[2020-09-13 11:05] LABS: Add Manual Diff / Slide Review NO; Basophils Absolute Auto 0 /uL (0-100); Basophils Percent Auto 0.3 % (0-2); Eosinophils Absolute Auto 100 /uL (0-450); Eosinophils Percent Auto 0.4 % (2-4); Hematocrit 41.8 % (36-46); Hemoglobin 13.5 g/dL (12.0-16.0); Lymphocytes Absolute Auto 1200 /uL (1100-4500); Lymphocytes Percent Auto 8.1 % (25-40); Mean Corpuscular HGB Conc 32.2 % (30-36); Mean Corpuscular Hemoglobin 28.1 PG (26-34); Mean Corpuscular Volume 87.3 fL (80-100); Monocytes Absolute Auto 600 /uL (0-900); Neutrophils Absolute Auto 13300 /uL (1500-7000); Neutrophils Percent Auto 87.2 % (50-75); Platelet Count 502 X10^3/uL (150-400); Red Blood Cell Count 4.78 X10^6/uL (4.0-5.2); Red Cell Distribution Width 13.3 % (11.6-14.8); White Blood Cell Count 15.2 X10^3/uL (4.5-11.0)
[2020-09-13] MEDS: KETOROLAC 60 MG/2 ML VIAL 30 MG IV (11:07)
[2020-09-13] MEDS: SODIUM CHLORIDE 0.9% 1,000 ML 1000 ML IV ×2 (11:07→13:42)
[2020-09-13] MEDS: ONDANSETRON 4 MG/2 ML INJ IV (11:07)
--- NOTE | 2020-09-13 11:08 | DI.CT.S_ITS ---
PROCEDURE: CT KIDNEY URETER BLADDER (KUB) INDICATIONS: LLQ/flank pain, hx stones, Right lithotripsy, stent on Laura TECHNIQUE: Noncontrast 5 mm thick sections acquired from the diaphragms to the symphysis. 5 mm thick coronal and sagittal reformats were then performed. For radiation dose reduction, the following was used: automated exposure control, adjustment of mA and/or kV according to patient size. COMPARISON: Outside Film, CT, CT ABDOMEN PELVIS WITHOUT CONTRAST, 08/29/2020, 15:53. [facility], CT, CT KIDNEY URETER BLADDER (KUB), 06/24/2019, 1:53. FINDINGS: Image quality: Excellent. Lung bases: Lung bases are clear. Heart size is normal. Urinary system: There is a 3 mm stone at the left UVJ. There is mild left hydronephrosis and ureterectasis. Both kidneys are normal in size. A ureteral stent is seen on the right side with the proximal loop formed within the right renal pelvis and distal loop within the urinary bladder. Bladder wall thickness is normal; no calcified bladder stones. Other solid organs: Liver is normal in size. Gallbladder is normal. Pancreas is normal in contours. Spleen is normal in size. No adrenal nodules. Peritoneum and bowel: Unenhanced bowel loops demonstrate normal wall thickness and caliber. No free fluid or air. Nodes and vessels: No retroperitoneal or mesenteric adenopathy by size criteria. Aorta and inferior vena cava are normal in caliber. Abdominal wall: No ventral hernias. Pelvis: Uterus and ovaries are normal. There is a 2.4 cm cyst in the left ovary, probably a dominant ovarian follicle. There is a trace amount of free fluid in pelvis, within physiological limits. No inguinal hernias or adenopathy. Bones: No suspicious bony lesions. No vertebral body compression fractures. IMPRESSION: 1. A 3 mm obstructive stone in the distal left ureter at the left UVJ. There is mild left hydronephrosis. 2. A right ureter stent is in the expected position. Dictated by: Barbie Smiley M.D. on 09/13/2020 at 11:52 Approved by: Barbie Smiley M.D. on 09/13/2020 at 12:18
[2020-09-13 11:13] LABS: Alanine Aminotransferase 16 IU/L (<35); Albumin 4.5 g/dL (3.5-5.0); Albumin Globulin Ratio 1.4 (1.0-2.8); Alkaline Phosphatase 73 U/L (38-126); Aspartate Aminotransferase 25 IU/L (14-36); BUN Creatinine Ratio 14.5 (6-22); Bilirubin Total 0.7 mg/dL (0.2-1.3); Blood Urea Nitrogen 17 mg/dL (7-17); Calcium 9.7 mg/dL (8.4-10.2); Carbon Dioxide 28 mmol/L (22-32); Chloride 103 mmol/L (98-107); Estimated Glomerular Filt Rate 56.4 mL/min (>60); Globulin 3.2 g/dL (1.7-4.1); Glucose 131 mg/dL (70-100); HEMOLYSIS < 15 (0-50); Lipase 31 U/L (23-300); Potassium 4.3 mmol/L (3.4-5.1); Sodium 138 mmol/L (137-145); Total Protein 7.7 g/dL (6.3-8.2)
[2020-09-13 12:07] LABS: Lactate (Lactic Acid) 1.6 mmol/L (0.7-2.1)
[2020-09-13] MEDS: MORPHINE 2 MG/ML INJ IV (12:08)
[2020-09-13] MEDS: CIPROFLOXACIN 400 MG/200 ML PIGGYBACK 200 MG IV (12:17)
[2020-09-13 12:24] LABS: Bacteria Urine None Seen
[2020-09-13 12:29] LABS: RBC Urine 10-30/HPF (0-5/HPF)
[2020-09-13 12:30] LABS: Culture Indicated Urine Cult Not Indicated; Squamous Epithelial Cell Urine 5-10 /HPF (0-5/HPF); WBC Urine 1-5/HPF (0-5/HPF)
[2020-09-13] MEDS: MORPHINE 4 MG/ML INJ IV (13:10)
--- NOTE | 2020-09-13 13:16 | PC.NURSE ---
pt c/o left lower pelvic pain. pt having difficulty urinating. pt recently had lithotripsy with stent placement to right ureter.
[2020-09-13] MEDS: LORazepam 2 MG/ML INJ 0.5 MG IV (13:41)
[2020-09-13] MEDS: LIDOCAINE 2% 4.8 ML in SODIUM CHLORIDE 0.9% 50 ML 328.8 ML IV (14:19)
== END 2020-09-13 14:49 | disposition home or self-care (01) ==
PROVIDERS: Emergency Provider Emergency Medicine
DX: N20.0 Calculus of kidney (principal); N39.0 Urinary tract infection, site not specified; D72.829 Elevated white blood cell count, unspecified; Z96.0 Presence of urogenital implants; R11.2 Nausea with vomiting, unspecified; R50.9 Fever, unspecified; K59.00 Constipation, unspecified
CPT/HCPCS: 36415; 74176; 80053; 81003; 81015; 81025; 83605; 83690; 85025; 87040; 87077; 87086; 96361; 96365; 96375; 96376; 99283; 99284; J0744; J1885; J2060; J2270; J2405